=== PATIENT | male | born 1970 | race Two or more races ===

== ENCOUNTER 2017-06-11 00:59 | Inpatient (IN) | payer OTHER, BC ==
[2017-06-11 06:50] LABS: ALANINE AMINOTRANSFERASE 70 IU/L (13-69); ALBUMIN 2.5 g/dl (3.3-4.9); ALBUMIN/GLOBULIN RATIO 0.78; ALKALINE PHOSPHATASE 111 IU/L (42-121); ANION GAP 13 (8-16); ASPARTATE AMINO TRANSFERASE 57 IU/L (15-46); BILIRUBIN,INDIRECT 0.1 mg/dl (0-1.1); BILIRUBIN,TOTAL 0.1 mg/dl (0.2-1.3); BLOOD UREA NITROGEN 44 mg/dl (7-20); CARBON DIOXIDE 26 mmol/L (21-31); CHLORIDE 101 mmol/L (97-110); GLUCOSE 390 mg/dl (70-220); LIPASE 595 U/L (23-300); POTASSIUM 4.2 mmol/L (3.5-5.1); SODIUM 136 mmol/L (135-144); TOTAL PROTEIN 5.7 g/dl (6.1-8.1)
[2017-06-11 06:57] LABS: ABNORMAL IP MESSAGE 1; HEMATOCRIT 16.9 % (42.0-52.0); MEAN CORPUSCULAR HEMOGLOBIN 27.8 pg (29.0-33.0); MEAN CORPUSCULAR HGB CONC 33.7 g/dl (32.0-37.0); MEAN CORPUSCULAR VOLUME 82.4 fl (82.0-101.0); MEAN PLATELET VOLUME 10.4 fl (7.4-10.4); PLATELET COUNT 126 10^3/UL (140-415); POSITIVE DIFF @See below; RED BLOOD COUNT 2.05 10^6/ul (4.70-6.10); RED CELL DISTRIBUTION WIDTH 13.3 % (11.5-14.5)
[2017-06-11 06:57] LABS: WHITE BLOOD COUNT 3.5 10^3/ul (4.8-10.8)
[2017-06-11 06:59] LABS: HEMOGLOBIN 5.7 g/dl (14.0-18.0)
[2017-06-11 07:02] LABS: ADD MAN DIFF? YES; B-TYPE NATRIURETIC PEPTIDE 275 PG/ML (0-125)
[2017-06-11 07:10] LABS: TROPONIN-I < 0.012 ng/ml (0.00-0.12)
[2017-06-11 07:47] LABS: EOSINOPHILS # 0.1 10^3/ul (0.0-0.5); EOSINOPHILS % (M) 3 % (0.0-7.0); LYMPHOCYTES # 0.8 10^3/ul (0.8-2.9); LYMPHOCYTES #M 0.8 10^3/ul (0.8-2.9); LYMPHOCYTES % (M) 23 % (15-51); MONOCYTE # 0.2 10^3/ul (0.3-0.9); MONOCYTE #M 0.2 10^3/ul (0.3-0.9); MONOCYTES % (M) 6 % (0-11); SEGMENTED NEUTROPHILS (M) % 68 % (39-77)
[2017-06-11 07:51] LABS: PATH REVIEW? YES
[2017-06-11 08:08] LABS: INR 1.15; PROTIME 14.9 Sec (11.9-14.9); PT RATIO 1.2
[2017-06-11 08:09] LABS: PARTIAL THROMBOPLASTIN TIME 33.4 Sec (25.0-35.0)
[2017-06-11 08:10] LABS: LACTATE DEHYDROGENASE 682 IU/L (313-618)
[2017-06-11 08:59] LABS: ADD UMIC YES; UR ASCORBIC ACID NEGATIVE (NEGATIVE); UR BILIRUBIN (Dip) NEGATIVE (NEGATIVE); UR BLOOD (Dip) 1+ mg/dL (NEGATIVE); UR CLARITY CLEAR (CLEAR); UR COLOR YELLOW (YELLOW); UR GLUCOSE (Dip) 3+ mg/dL (NEGATIVE); UR KETONES (Dip) NEGATIVE (NEGATIVE); UR LEUKOCYTE ESTERASE (Dip) NEGATIVE Leu/ul (NEGATIVE); UR NITRITE (Dip) NEGATIVE (NEGATIVE); UR RBC 1 /HPF (0-5); UR SPECIFIC GRAVITY (Dip) 1.017 (1.003-1.030); UR TOTAL PROTEIN (Dip) 1+ mg/dl (NEGATIVE); UR UROBILINOGEN (Dip) NEGATIVE (NEGATIVE); UR WBC 0 /HPF (0-5)
[2017-06-11] MEDS ORDERED: INSULIN GLARGINE [LANtus] 3 ML PEN SC ×2 (10:00→20:00)
[2017-06-11] MEDS ORDERED: LORAZEPAM 0.5 MG TAB PO (10:00)
[2017-06-11] MEDS ORDERED: HYDROCODONE/APAP (5/325) TAB PO (10:00)
[2017-06-11] MEDS ORDERED: ZOLPIDEM 5 MG TAB PO (10:00)
[2017-06-11] MEDS ORDERED: NACL 0.9% 3 ML SYG IV ×2 (10:00→21:30)
[2017-06-11] MEDS ORDERED: DOCUSATE SODIUM 100 MG CAP PO (10:00)
[2017-06-11] MEDS ORDERED: BISACODYL (EC) 5 MG TAB PO (10:00)
[2017-06-11] MEDS ORDERED: GLUCAGON 1 MG INJ IM (10:30)
[2017-06-11] MEDS ORDERED: DEXTROSE 50% 50 ML SYRINGE IV ×2 (10:30)
[2017-06-11] MEDS ORDERED: GLUCOSE GEL 15 GRAM TUBE BUCCAL (10:30)
[2017-06-11] MEDS ORDERED: GLUCOSE GEL 15 GRAM TUBE PO ×2 (10:30)
[2017-06-11] MEDS: SOD CHLORIDE 0.9% 250 ML IV (11:15)
[2017-06-11] MEDS: INSULIN ASPART [NOVOLOG] 3 ML PEN SC ×3 (12:22→22:06)
[2017-06-11 14:31] LABS: AMPHETAMINE/METHAMPHETAMINE Negative (NEGATIVE); BARBITURATES Negative (NEGATIVE); BENZODIAZEPINES Negative (NEGATIVE); CANNABINOIDS Negative (NEGATIVE); COCAINE Negative (NEGATIVE); OPIATES Negative (NEGATIVE)
[2017-06-11] MEDS: PANTOPRAZOLE IV 80 MG in SOD CHLORIDE 0.9% 100 ML IVPB (15:19)
[2017-06-11] MEDS: FUROSEMIDE 40 MG INJ IV (15:20)
[2017-06-11] MEDS: OCTREOTIDE 50 MCG in SOD CHLORIDE 0.9% 50 ML IVPB (15:20)
[2017-06-11 15:24] LABS: HAAIG REFLEX REFLEX FILED
[2017-06-11 15:32] LABS: HEMOGLOBIN 6.1 g/dl (14.0-18.0)
[2017-06-11 15:44] LABS: CREATINE KINASE 148 IU/L (23-200)
[2017-06-11] MEDS: OCTREOTIDE 500 MCG in DEXTROSE 5% 49 ML IV (15:45)
[2017-06-11] MEDS: PANTOPRAZOLE IV 80 MG in SOD CHLORIDE 0.9% 100 ML IV (15:45)
[2017-06-11 15:57] LABS: CK INDEX 1.8
[2017-06-11 15:58] LABS: CK-MB 2.69 ng/ml (0.0-2.4); TROPONIN-I < 0.012 ng/ml (0.00-0.12)
[2017-06-11 16:19] LABS: HEPATITIS B SURFACE ANTIGEN NEGATIVE (NEGATIVE)
[2017-06-11 16:37] LABS: HEPATITIS B CORE ANTIBODY REACTIVE (NEGATIVE)
[2017-06-11 16:41] LABS: HEPATITIS C VIRAL ANTIBODY REACTIVE (NEGATIVE)
[2017-06-11 16:52] LABS: GAMMA GLUTAMYL TRANSPEPTIDASE 53 IU/L (0-50)
[2017-06-11 21:30] LABS: CREATINE KINASE 131 IU/L (23-200)
[2017-06-11] MEDS ORDERED: oxyCODONE 5 MG TAB PO (21:30)
[2017-06-11] MEDS ORDERED: morphine 2 MG INJ IV (21:30)
[2017-06-11 21:44] LABS: CK INDEX 1.5
[2017-06-11 21:50] LABS: CK-MB 2.01 ng/ml (0.0-2.4); TROPONIN-I < 0.012 ng/ml (0.00-0.12)
[2017-06-11] MEDS: LACTULOSE 30ML CUP PO (21:55)
[2017-06-11] MEDS: INSULIN GLARGINE [LANtus] 3 ML PEN SC (22:06)
[2017-06-12 00:38] LABS: IMMEDIATE SPIN CROSSMATCH 1 2
[2017-06-12] MEDS: ACETAMINOPHEN 325 MG TAB PO (00:48)
[2017-06-12] MEDS: SOD CHLORIDE 0.9% 250 ML IV* (01:04)
[2017-06-12] MEDS: ACCU-CHEK XX ×2 (02:26→21:46)
[2017-06-12] MEDS: PANTOPRAZOLE IV 80 MG in SOD CHLORIDE 0.9% 100 ML IV ×3 (02:53→18:52)
[2017-06-12] MEDS: FUROSEMIDE 40 MG INJ IV (03:45)
[2017-06-12 04:06] LABS: IMMEDIATE SPIN CROSSMATCH 1 6
[2017-06-12] MEDS: OCTREOTIDE 500 MCG in DEXTROSE 5% 49 ML IV ×2 (06:00→17:54)
[2017-06-12] MEDS: FUROSEMIDE 20 MG INJ IV ×5 (07:05→17:35)
[2017-06-12] MEDS ORDERED: INSULIN GLARGINE [LANtus] 3 ML PEN SC ×2 (08:00)
[2017-06-12] MEDS ORDERED: POTASSIUM CHLORIDE 50 ML IVPB (08:00)
[2017-06-12] MEDS: INSULIN ASPART [NOVOLOG] 3 ML PEN SC ×6 (08:12→21:00)
[2017-06-12] MEDS: ONDANSETRON 4 MG INJ IV ×4 (08:21→17:54)
[2017-06-12] MEDS ORDERED: LOSARTAN 50 MG TAB PO (09:00)
[2017-06-12] MEDS ORDERED: ENALAPRIL 5 MG TAB PO (09:00)
[2017-06-12] MEDS: PROPOFOL 20 ML (11:09)
[2017-06-12] MEDS: FENTAnyl 50 MCG/ML VIAL (11:10)
[2017-06-12] MEDS ORDERED: HYDROmorphONE (0.2 MG/ML) 10ML SYG IV (11:30)
[2017-06-12] MEDS ORDERED: hydrALAzine 20 MG INJ IV (11:30)
[2017-06-12] MEDS ORDERED: LABETALOL HCL 20MG INJ IV (11:30)
[2017-06-12] MEDS: LORAZEPAM 0.5 MG TAB PO (13:38)
[2017-06-12] MEDS: RIFAXIMIN 550 MG TAB PO ×2 (13:39→21:02)
[2017-06-12 14:51] LABS: ADD MAN DIFF? NO
[2017-06-12 14:52] LABS: WHITE BLOOD COUNT 3.8 10^3/ul (4.8-10.8)
[2017-06-12 14:52] LABS: ABNORMAL IP MESSAGE 1; BASOPHILS % 0.5 % (0.0-2.0); EOSINOPHILS # 0.1 10^3/ul (0.0-0.5); EOSINOPHILS % 2.9 % (0.0-7.0); HEMATOCRIT 28.7 % (42.0-52.0); HEMOGLOBIN 9.9 g/dl (14.0-18.0); LYMPHOCYTES # 0.7 10^3/ul (0.8-2.9); LYMPHOCYTES % 17.6 % (15.0-51.0); MEAN CORPUSCULAR HEMOGLOBIN 28.7 pg (29.0-33.0); MEAN CORPUSCULAR HGB CONC 34.5 g/dl (32.0-37.0); MEAN CORPUSCULAR VOLUME 83.2 fl (82.0-101.0); MEAN PLATELET VOLUME 9.7 fl (7.4-10.4); MONOCYTE # 0.3 10^3/ul (0.3-0.9); MONOCYTES % 8.9 % (0.0-11.0); NEUTROPHIL # 2.6 10^3/ul (1.6-7.5); NEUTROPHILS % 69.3 % (39.0-77.0); PLATELET COUNT 96 10^3/UL (140-415); POSITIVE DIFF @See below; RED BLOOD COUNT 3.45 10^6/ul (4.70-6.10); RED CELL DISTRIBUTION WIDTH 13.4 % (11.5-14.5)
[2017-06-12 15:01] LABS: HEMOGLOBIN A1C 8.1 % (0-5.9)
[2017-06-12 15:15] LABS: LIPASE 302 U/L (23-300)
[2017-06-12 15:16] LABS: ALANINE AMINOTRANSFERASE 68 IU/L (13-69); ALBUMIN 2.5 g/dl (3.3-4.9); ALBUMIN/GLOBULIN RATIO 0.71; ALKALINE PHOSPHATASE 67 IU/L (42-121); ANION GAP 12 (8-16); ASPARTATE AMINO TRANSFERASE 75 IU/L (15-46); BILIRUBIN,INDIRECT 1.4 mg/dl (0-1.1); BILIRUBIN,TOTAL 1.4 mg/dl (0.2-1.3); BLOOD UREA NITROGEN 37 mg/dl (7-20); CALCIUM 8.3 mg/dl (8.4-10.2); CARBON DIOXIDE 30 mmol/L (21-31); CHLORIDE 102 mmol/L (97-110); CREATININE 1.61 mg/dl (0.61-1.24); GLUCOSE 167 mg/dl (70-220); HDL CHOLESTEROL 28 mg/dl (27-67); MAGNESIUM 1.7 mg/dl (1.7-2.5); POTASSIUM 3.8 mmol/L (3.5-5.1); SODIUM 140 mmol/L (135-144); TRIGLYCERIDES 39 mg/dl (0-149)
[2017-06-12 15:24] LABS: CHOLESTEROL < 50 mg/dl (100-200)
[2017-06-12] MEDS: INSULIN GLARGINE [LANtus] 3 ML PEN SC (21:04)
[2017-06-13 02:24] LABS: HEMATOCRIT 26.9 % (42.0-52.0); HEMOGLOBIN 9.2 g/dl (14.0-18.0)
[2017-06-13] MEDS: SPIRONOLACTONE 25 MG TAB PO ×2 (05:43→17:22)
[2017-06-13] MEDS: PANTOPRAZOLE 40 MG INJ IV ×2 (05:43→17:22)
[2017-06-13 06:38] LABS: ADD MAN DIFF? NO
[2017-06-13 06:42] LABS: WHITE BLOOD COUNT 4.8 10^3/ul (4.8-10.8)
[2017-06-13 06:42] LABS: BASOPHILS % 0.4 % (0.0-2.0); EOSINOPHILS # 0.2 10^3/ul (0.0-0.5); EOSINOPHILS % 4.6 % (0.0-7.0); HEMATOCRIT 27.6 % (42.0-52.0); HEMOGLOBIN 9.3 g/dl (14.0-18.0); LYMPHOCYTES # 1.1 10^3/ul (0.8-2.9); LYMPHOCYTES % 23.5 % (15.0-51.0); MEAN CORPUSCULAR HGB CONC 33.7 g/dl (32.0-37.0); MEAN CORPUSCULAR VOLUME 83.1 fl (82.0-101.0); MEAN PLATELET VOLUME 10.1 fl (7.4-10.4); MONOCYTE # 0.4 10^3/ul (0.3-0.9); NEUTROPHILS % 61.9 % (39.0-77.0); PLATELET COUNT 101 10^3/UL (140-415); RED BLOOD COUNT 3.32 10^6/ul (4.70-6.10); RED CELL DISTRIBUTION WIDTH 13.8 % (11.5-14.5)
[2017-06-13 07:13] LABS: AMMONIA 14 umol/l (9-30)
[2017-06-13 07:48] LABS: MAGNESIUM 1.6 mg/dl (1.7-2.5)
[2017-06-13 07:51] LABS: ALANINE AMINOTRANSFERASE 63 IU/L (13-69); ALBUMIN 2.2 g/dl (3.3-4.9); ALKALINE PHOSPHATASE 62 IU/L (42-121); ANION GAP 11 (8-16); ASPARTATE AMINO TRANSFERASE 61 IU/L (15-46); BILIRUBIN,INDIRECT 0.6 mg/dl (0-1.1); BILIRUBIN,TOTAL 0.6 mg/dl (0.2-1.3); BLOOD UREA NITROGEN 35 mg/dl (7-20); CALCIUM 7.9 mg/dl (8.4-10.2); CARBON DIOXIDE 30 mmol/L (21-31); CHLORIDE 105 mmol/L (97-110); CREATININE 1.73 mg/dl (0.61-1.24); GLUCOSE 109 mg/dl (70-220); LIPASE 183 U/L (23-300); POTASSIUM 3.7 mmol/L (3.5-5.1); SODIUM 142 mmol/L (135-144); TOTAL PROTEIN 5.3 g/dl (6.1-8.1)
[2017-06-13] MEDS: INSULIN ASPART [NOVOLOG] 3 ML PEN SC ×6 (07:55→20:44)
[2017-06-13] MEDS: INSULIN GLARGINE [LANtus] 3 ML PEN SC (09:16)
[2017-06-13] MEDS: RIFAXIMIN 550 MG TAB PO ×2 (09:19→20:43)
[2017-06-13] MEDS: MAGNESIUM SULFATE 2 GM/50 ML 50 ML IVPB (09:21)
[2017-06-13 11:42] LABS: HEMATOCRIT 28.6 % (42.0-52.0); HEMOGLOBIN 9.7 g/dl (14.0-18.0)
[2017-06-13 17:49] LABS: HEMATOCRIT 27.1 % (42.0-52.0); HEMOGLOBIN 9.3 g/dl (14.0-18.0)
[2017-06-13] MEDS: POTASSIUM CHLORIDE 10 MEQ in SOD CHLORIDE 0.9% 50 ML IVPB (18:41)
[2017-06-13] MEDS: ALBUMIN HUMAN 25% 100 ML IV (20:51)
[2017-06-14] MEDS: ACCU-CHEK XX (02:00)
[2017-06-14] MEDS: SPIRONOLACTONE 25 MG TAB PO ×2 (05:28→17:37)
[2017-06-14] MEDS: PANTOPRAZOLE 40 MG INJ IV ×2 (05:28→17:37)
[2017-06-14] MEDS: ALBUMIN HUMAN 25% 100 ML IV ×2 (05:28→12:21)
[2017-06-14] MEDS: INSULIN ASPART [NOVOLOG] 3 ML PEN SC ×7 (07:55→21:00)
[2017-06-14 08:03] LABS: ADD MAN DIFF? NO
[2017-06-14 08:09] LABS: ABNORMAL IP MESSAGE 1; BASOPHILS % 0.4 % (0.0-2.0); EOSINOPHILS # 0.3 10^3/ul (0.0-0.5); EOSINOPHILS % 5.2 % (0.0-7.0); HEMATOCRIT 25.4 % (42.0-52.0); HEMOGLOBIN 8.4 g/dl (14.0-18.0); LYMPHOCYTES % 20.3 % (15.0-51.0); MEAN CORPUSCULAR HEMOGLOBIN 27.9 pg (29.0-33.0); MEAN CORPUSCULAR HGB CONC 33.1 g/dl (32.0-37.0); MEAN CORPUSCULAR VOLUME 84.4 fl (82.0-101.0); MEAN PLATELET VOLUME 9.7 fl (7.4-10.4); MONOCYTE # 0.5 10^3/ul (0.3-0.9); MONOCYTES % 10.9 % (0.0-11.0); NEUTROPHIL # 3.1 10^3/ul (1.6-7.5); PLATELET COUNT 82 10^3/UL (140-415); POSITIVE DIFF @See below; RED BLOOD COUNT 3.01 10^6/ul (4.70-6.10); RED CELL DISTRIBUTION WIDTH 13.9 % (11.5-14.5)
[2017-06-14] MEDS: INSULIN GLARGINE [LANtus] 3 ML PEN SC (08:27)
[2017-06-14 08:29] LABS: MAGNESIUM 1.8 mg/dl (1.7-2.5)
[2017-06-14 08:29] LABS: PHOSPHORUS 3.5 mg/dl (2.5-4.9)
[2017-06-14 08:34] LABS: ALANINE AMINOTRANSFERASE 54 IU/L (13-69); ALBUMIN 2.5 g/dl (3.3-4.9); ALBUMIN/GLOBULIN RATIO 0.83; ALKALINE PHOSPHATASE 50 IU/L (42-121); ANION GAP 12 (8-16); ASPARTATE AMINO TRANSFERASE 49 IU/L (15-46); BILIRUBIN,INDIRECT 0.6 mg/dl (0-1.1); BILIRUBIN,TOTAL 0.6 mg/dl (0.2-1.3); BLOOD UREA NITROGEN 32 mg/dl (7-20); CARBON DIOXIDE 30 mmol/L (21-31); CHLORIDE 104 mmol/L (97-110); CREATININE 1.61 mg/dl (0.61-1.24); GLUCOSE 118 mg/dl (70-220); SODIUM 142 mmol/L (135-144); TOTAL PROTEIN 5.5 g/dl (6.1-8.1)
[2017-06-14] MEDS: RIFAXIMIN 550 MG TAB PO ×2 (08:37→20:15)
[2017-06-14 12:18] LABS: HEMATOCRIT 25.7 % (42.0-52.0); HEMOGLOBIN 8.7 g/dl (14.0-18.0)
[2017-06-14 18:57] LABS: HAPTOGLOBIN 27 mg/dL (43-212)
[2017-06-15] MEDS: ACCU-CHEK XX ×2 (02:00→21:20)
[2017-06-15] MEDS: PANTOPRAZOLE 40 MG INJ IV ×2 (05:25→17:54)
[2017-06-15] MEDS: SPIRONOLACTONE 25 MG TAB PO ×2 (05:25→17:54)
[2017-06-15 06:09] LABS: ADD MAN DIFF? NO
[2017-06-15 06:19] LABS: ABNORMAL IP MESSAGE 1; BASOPHILS % 0.5 % (0.0-2.0); EOSINOPHILS # 0.2 10^3/ul (0.0-0.5); EOSINOPHILS % 5.2 % (0.0-7.0); HEMOGLOBIN 8.3 g/dl (14.0-18.0); LYMPHOCYTES # 0.9 10^3/ul (0.8-2.9); LYMPHOCYTES % 22.9 % (15.0-51.0); MEAN CORPUSCULAR HEMOGLOBIN 28.3 pg (29.0-33.0); MEAN CORPUSCULAR HGB CONC 33.2 g/dl (32.0-37.0); MEAN CORPUSCULAR VOLUME 85.3 fl (82.0-101.0); MEAN PLATELET VOLUME 9.6 fl (7.4-10.4); MONOCYTE # 0.6 10^3/ul (0.3-0.9); MONOCYTES % 13.7 % (0.0-11.0); NEUTROPHIL # 2.3 10^3/ul (1.6-7.5); NEUTROPHILS % 57.5 % (39.0-77.0); PLATELET COUNT 73 10^3/UL (140-415); POSITIVE DIFF @See below; RED BLOOD COUNT 2.93 10^6/ul (4.70-6.10); RED CELL DISTRIBUTION WIDTH 13.9 % (11.5-14.5)
[2017-06-15 07:09] LABS: ALANINE AMINOTRANSFERASE 56 IU/L (13-69); ALBUMIN 2.6 g/dl (3.3-4.9); ALBUMIN/GLOBULIN RATIO 0.96; ALKALINE PHOSPHATASE 49 IU/L (42-121); ANION GAP 11 (8-16); ASPARTATE AMINO TRANSFERASE 50 IU/L (15-46); BILIRUBIN,INDIRECT 0.6 mg/dl (0-1.1); BILIRUBIN,TOTAL 0.6 mg/dl (0.2-1.3); BLOOD UREA NITROGEN 33 mg/dl (7-20); CALCIUM 7.7 mg/dl (8.4-10.2); CARBON DIOXIDE 29 mmol/L (21-31); CHLORIDE 105 mmol/L (97-110); CREATININE 1.49 mg/dl (0.61-1.24); GLUCOSE 100 mg/dl (70-220); MAGNESIUM 1.7 mg/dl (1.7-2.5); PHOSPHORUS 3.3 mg/dl (2.5-4.9); POTASSIUM 3.9 mmol/L (3.5-5.1); SODIUM 141 mmol/L (135-144); TOTAL PROTEIN 5.3 g/dl (6.1-8.1)
[2017-06-15 07:28] LABS: ALPHA FETOPROTEIN 5.58 IU/L (0.00-7.21)
[2017-06-15] MEDS: RIFAXIMIN 550 MG TAB PO ×2 (08:34→21:19)
[2017-06-15] MEDS: INSULIN ASPART [NOVOLOG] 3 ML PEN SC ×7 (09:49→21:00)
[2017-06-15] MEDS: INSULIN GLARGINE [LANtus] 3 ML PEN SC (09:50)
[2017-06-15] MEDS: FUROSEMIDE 20 MG TAB PO (09:57)
[2017-06-15] MEDS: FERROUS SULFATE (EC) 325 MG TAB PO ×2 (12:17→21:19)
[2017-06-15] MEDS: INFLUENZA VIRUS VACCINE 0.5 ML (DISPENSING) IM* (12:18)
[2017-06-15] MEDS: PROPRANOLOL 10 MG TAB PO (17:54)
[2017-06-16] MEDS: SPIRONOLACTONE 25 MG TAB PO (05:56)
[2017-06-16] MEDS: PANTOPRAZOLE 40 MG INJ IV (05:56)
[2017-06-16] MEDS: INSULIN ASPART [NOVOLOG] 3 ML PEN SC ×4 (08:02→12:30)
[2017-06-16] MEDS: INSULIN GLARGINE [LANtus] 3 ML PEN SC (08:15)
[2017-06-16] MEDS: RIFAXIMIN 550 MG TAB PO (08:28)
[2017-06-16] MEDS: FERROUS SULFATE (EC) 325 MG TAB PO (08:28)
[2017-06-16] MEDS: FUROSEMIDE 20 MG TAB PO (08:29)
[2017-06-16 10:56] LABS: ADD MAN DIFF? NO
[2017-06-16 10:59] LABS: ABNORMAL IP MESSAGE 1; BASOPHILS % 0.4 % (0.0-2.0); EOSINOPHILS # 0.3 10^3/ul (0.0-0.5); EOSINOPHILS % 6.7 % (0.0-7.0); HEMATOCRIT 27.4 % (42.0-52.0); HEMOGLOBIN 9.2 g/dl (14.0-18.0); LYMPHOCYTES # 1.1 10^3/ul (0.8-2.9); LYMPHOCYTES % 24.6 % (15.0-51.0); MEAN CORPUSCULAR HEMOGLOBIN 28.7 pg (29.0-33.0); MEAN CORPUSCULAR HGB CONC 33.6 g/dl (32.0-37.0); MEAN CORPUSCULAR VOLUME 85.4 fl (82.0-101.0); MEAN PLATELET VOLUME 9.6 fl (7.4-10.4); MONOCYTE # 0.7 10^3/ul (0.3-0.9); MONOCYTES % 15.9 % (0.0-11.0); NEUTROPHIL # 2.4 10^3/ul (1.6-7.5); NEUTROPHILS % 52.2 % (39.0-77.0); POSITIVE DIFF @See below; RED BLOOD COUNT 3.21 10^6/ul (4.70-6.10); RED CELL DISTRIBUTION WIDTH 14.2 % (11.5-14.5)
[2017-06-16 10:59] LABS: WHITE BLOOD COUNT 4.6 10^3/ul (4.8-10.8)
[2017-06-16 11:01] LABS: PLATELET COUNT 80 10^3/UL (140-415)
[2017-06-16 11:25] LABS: ALANINE AMINOTRANSFERASE 54 IU/L (13-69); ALBUMIN 2.5 g/dl (3.3-4.9); ALBUMIN/GLOBULIN RATIO 0.89; ALKALINE PHOSPHATASE 47 IU/L (42-121); ANION GAP 9 (8-16); ASPARTATE AMINO TRANSFERASE 70 IU/L (15-46); BILIRUBIN,INDIRECT 0.6 mg/dl (0-1.1); BILIRUBIN,TOTAL 0.6 mg/dl (0.2-1.3); BLOOD UREA NITROGEN 35 mg/dl (7-20); CALCIUM 7.8 mg/dl (8.4-10.2); CARBON DIOXIDE 29 mmol/L (21-31); CHLORIDE 104 mmol/L (97-110); CREATININE 1.35 mg/dl (0.61-1.24); GLUCOSE 89 mg/dl (70-220); MAGNESIUM 1.8 mg/dl (1.7-2.5); POTASSIUM 4.1 mmol/L (3.5-5.1); SODIUM 138 mmol/L (135-144); TOTAL PROTEIN 5.3 g/dl (6.1-8.1)
[2017-06-16 11:27] LABS: AMMONIA < 9 umol/l (9-30)
[2017-06-16 11:33] LABS: INR 1.29; PARTIAL THROMBOPLASTIN TIME 36.5 Sec (25.0-35.0); PROTIME 16.3 Sec (11.9-14.9); PT RATIO 1.3
== END 2017-06-16 13:25 | disposition home health service (06) | DRG 441 ==
LOC: MS2 06-14 22:45 → E/R 00:59 → TEL 09:49
PROVIDERS: Hospitalist
PROC: 06L38CZ Occlusion of Esophageal Vein with Extraluminal Device, Via Natural or Artificial Opening Endoscopic (ICD-10-PCS; principal; 2017-06-12 10:45)
PROC: 30233N1 Transfusion of Nonautologous Red Blood Cells into Peripheral Vein, Percutaneous Approach (ICD-10-PCS; 2017-06-12 10:45)
PROC: 0DB68ZX Excision of Stomach, Via Natural or Artificial Opening Endoscopic, Diagnostic (ICD-10-PCS; 2017-06-12 10:45)
DX: B18.1 Chronic viral hepatitis B without delta-agent (principal); I85.11 Secondary esophageal varices with bleeding; K76.7 Hepatorenal syndrome; N17.9 Acute kidney failure, unspecified; D61.818 Other pancytopenia; D62 Acute posthemorrhagic anemia; E11.21 Type 2 diabetes mellitus with diabetic nephropathy; K76.6 Portal hypertension; I11.0 Hypertensive heart disease with heart failure; B17.10 Acute hepatitis C without hepatic coma; K74.69 Other cirrhosis of liver; E78.5 Hyperlipidemia, unspecified; E53.8 Deficiency of other specified B group vitamins; E11.65 Type 2 diabetes mellitus with hyperglycemia; K29.70 Gastritis, unspecified, without bleeding; B18.2 Chronic viral hepatitis C; I50.9 Heart failure, unspecified
CPT/HCPCS: 36415; 36430; 71045; 76700; 80053; 80061; 80307; 81001; 82105; 82140; 82550; 82553; 82962; 82977; 83010; 83036; 83615; 83690; 83735; 83880; 84100; 84443; 84484; 85014; 85018; 85025; 85610; 85730; 86704; 86709; 86803; 86850; 86900; 86901; 86920; 87340; 88305; 88312; 93005; 93970; 96360; 96361; 97161; 97166; 99285-25; J1940